=== PATIENT | female | born 1960 ===

== ENCOUNTER 2020-05-30 13:16 | Emergency (ER) | payer SELFPAY ==
[2020-05-30 13:52] VITALS: BP 123/71
--- NOTE | 2020-05-30 13:54 | Emergency Department Report ---
Chief Complaint: Earache Stated Complaint: RT EAR PAIN/CAN'T HEAR Time Seen by Provider: 05/30/20 13:51 - HPI History of Present Illness: 59-year-old female patient presents emergency department with complaints of right ear pain and decreased hearing for 8 days. She is visiting from [place]. She is not currently on antibiotics. Denies fever, chills, sore throat, bleeding, drainage, cough, neck stiffness, headache. Denies all other complaints at this time. - ROS Review of Systems: GENERAL: Negative for fever. ENT: Positive for ear pain. CARDIOVASCULAR: Negative for chest pain. PULMONARY: Negative for shortness of breath. GASTROINTESTINAL: Negative for abdominal pain. MUSCULOSKELETAL: Negative for back pain. NEUROLOGICAL: Negative for headache. INTEGUMENTARY: Negative for rash. - Exam Vital Signs: See nursing note. Physical Exam: General: Awake, appropriately interactive, no acute distress. ENT: Normal pharyngeal exam. Right tympanic membrane appears erythematous, poor light reflex. No purulent drainage. No mastoid tenderness. Neck: Supple. Full range of motion intact. Cardiovascular: Normal peripheral perfusion. Pulmonary: No respiratory distress. Patient is speaking normally without use of accessory muscles. Skin: No apparent rashes or lesions. Neurological: No facial asymmetry. Speech is clear. Follows commands. Patient is alert and oriented. Musculoskeletal: Moves all four extremities spontaneously with normal range of motion. Psych: Cooperative. Appropriate mood and affect. MSE screening note: Focused history and physical exam performed. Due to findings the following was ordered: ED Medical Decision Making - Medical Decision Making Patient presents emergency department complaints of right ear pain. She is afebrile, vital signs are stable. No other symptoms. History and exam findings consistent with right otitis media. Patient will be discharged home with prescription for amoxicillin advised to follow-up with primary care provider upon returning home. Patient is visiting from [place]. Patient expressed understanding is agreeable to plan of care. Strict return precautions provided. ED Disposition for MSE Clinical Impression: Right otitis media Qualifiers: Otitis media type: unspecified Qualified Code(s): H66.91 - Otitis media, unspecified, right ear Disposition: MED SCREENING EXAM-LEFT Is pt being admited?: No Does the pt Need Aspirin: No Condition: Stable Instructions: Otitis Media, Adult, [id number] Additional Instructions: Take Tylenol every 4 hours and Motrin every 8 hours as needed for pain. Take Amoxicillin with food as directed. Follow-up with your primary care provider upon returning home. Return to the emergency department immediately for new or worsening symptoms. Prescriptions: Amoxicillin [Amoxicillin CAP] 500 mg PO BID 7 Days cap Referrals: YESICA CR MD [Staff Physician] - 3-5 Days Time of Disposition: 13:53
== END 2020-05-30 15:21 | disposition left against medical advice (07) ==
LOC: ED 13:16
DX: H66.91 Otitis media, unspecified, right ear (principal); Z53.21 Procedure and treatment not carried out due to patient leaving prior to being seen by health care provider